=== PATIENT | female | born 1945 | race Caucasian/White ===

== ENCOUNTER → 2016-09-25 | Outpatient (REF) | payer MEDICARE | LOC: M LAB REF 17:30 | PROVIDERS: ATTEND Internal Medicine Endocrinology, Diabetes & Metabolism | DX: E04.2 Nontoxic multinodular goiter (principal); Z85.3 Personal history of malignant neoplasm of breast ==

== ENCOUNTER → 2016-10-24 | Outpatient (CLI) | payer MEDICARE ==
--- NOTE | 2016-10-26 09:35 | DEXA ---
AP SPINE L1 - L4 1.161 -0.3 1.4 LT FEMUR TOTAL 0.858 -1.2 0.3 RT FEMUR TOTAL 0.834 -1.4 0.2 TOTAL BODY TOTAL OTHER DUAL FEMUR FRAX* ASSESSMENT Risk factors: Mother hip fracture, adult fractures. 10 year probability of fracture Major osteoporotic fracture 30.1 % Hip fracture 10.7 % COMMENTS: Normal bone densitometry of the spine. There is low bone density of the hips. The density of the spine has decreased 3.9% since the initial exam on 2000. The spine density has increased 0.7% since the most recent exam on 10/03/2015. The density of the left hip has decreased 3.2% since the initial exam on 2000. The density of the left hip has decreased 1.7% since the most recent exam on . The density of the right hip has decreased 1.1% since the initial exam on 2000. The density of the right hip has decreased 0.4% since the most recent exam on . FOLLOW-UP: Recommendation for the next bone density exam: 2 years. NESS
== END ==
LOC: M WHC 13:06
PROVIDERS: ATTEND Internal Medicine Medical Oncology
DX: M85.80 Other specified disorders of bone density and structure, unspecified site (principal); Z79.811 Long term (current) use of aromatase inhibitors

== ENCOUNTER → 2017-01-25 | Outpatient (REF) | payer MEDICARE ==
[2017-01-25 14:28] LABS: FOLATE 21.8 NG/ML
== END ==
LOC: M LAB REF 12:32
PROVIDERS: ATTEND Internal Medicine Medical Oncology
DX: C50.919 Malignant neoplasm of unspecified site of unspecified female breast (principal)

== ENCOUNTER → 2017-09-24 | Outpatient (REF) | payer MEDICARE | LOC: M LAB REF 18:16 | DX: C44.712 Basal cell carcinoma of skin of right lower limb, including hip (principal); L57.0 Actinic keratosis | CPT/HCPCS: 88305 ==

== ENCOUNTER → 2017-10-29 | Outpatient (CLI) | payer MEDICARE ==
[~2017-10-29] MED LIST: GASTROGRAFIN SOLUTION 30ML (Q9963) As Ordered; ISOVUE-370 76% 100ML VIAL (Q9967) As Ordered
== END ==
LOC: M RAD 12:09
DX: C50.919 Malignant neoplasm of unspecified site of unspecified female breast (principal); K76.89 Other specified diseases of liver; R91.8 Other nonspecific abnormal finding of lung field; R10.9 Unspecified abdominal pain; M85.80 Other specified disorders of bone density and structure, unspecified site; Z78.0 Asymptomatic menopausal state
CPT/HCPCS: Q9963

== ENCOUNTER → 2017-10-29 | Outpatient (CLI) | payer MEDICARE | LOC: M WHC 11:21 | DX: C50.919 Malignant neoplasm of unspecified site of unspecified female breast (principal); M85.80 Other specified disorders of bone density and structure, unspecified site ==

== ENCOUNTER → 2018-12-08 | Outpatient (REF) | payer MEDICARE ==
[~2018-12-08] MED LIST changes: -GASTROGRAFIN SOLUTION 30ML (Q9963) As Ordered; -ISOVUE-370 76% 100ML VIAL (Q9967) As Ordered; +LETR2.5T2 PO
[2018-12-10 00:06] LABS: Lyme Disease IgG/IgM Antibodie <0.91 ISR (0.00-0.90); Lyme Disease IgM Ab Quantitati <0.80 index (0.00-0.79)
== END ==
LOC: M LAB REF 12:29
PROVIDERS: ATTEND Internal Medicine
DX: M25.50 Pain in unspecified joint (principal)

== ENCOUNTER → 2019-01-02 | Outpatient (REF) | payer MEDICARE ==
[~2019-01-02] MED LIST changes: +ASPI81TA85 PO; +CALTTAB6 PO; +MULTTAB13 PO; +VITA200028 PO
== END ==
LOC: M SFHCPLAZ 16:45
PROVIDERS: ATTEND Dermatology
DX: C44.629 Squamous cell carcinoma of skin of left upper limb, including shoulder (principal)
CPT/HCPCS: 11102; 17000; 17003; 88305; G0463

== ENCOUNTER → 2019-01-09 | Outpatient (REF) | payer MEDICARE | LOC: M LAB REF 19:31 | PROVIDERS: ATTEND Dermatology | DX: L90.5 Scar conditions and fibrosis of skin (principal) ==

== ENCOUNTER → 2021-12-27 | Outpatient (REF) | payer MEDICARE ==
[~2021-12-27] MED LIST changes: -ASPI81TA85 PO; +ASPI81TA86 PO
== END ==
LOC: M SFHCDERM 14:33
PROVIDERS: ATTEND Physician Assistant
DX: B99.9 Unspecified infectious disease (principal)

== ENCOUNTER → 2022-10-17 | Outpatient (REF) | payer MEDICARE | LOC: M LAB REF 16:14 | PROVIDERS: ATTEND Internal Medicine | DX: N39.0 Urinary tract infection, site not specified (principal) ==

== ENCOUNTER → 2022-10-19 | Outpatient (REF) | payer MEDICARE | LOC: M LAB REF 16:22 | PROVIDERS: ATTEND Internal Medicine | DX: N30.01 Acute cystitis with hematuria (principal); L29.8 Other pruritus; I87.322 Chronic venous hypertension (idiopathic) with inflammation of left lower extremity ==

== ENCOUNTER → 2024-12-02 | Outpatient (REF) | payer MEDICARE | LOC: M SFHCDERM 17:49 | PROVIDERS: ATTEND Physician Assistant | DX: C44.329 Squamous cell carcinoma of skin of other parts of face (principal); C44.619 Basal cell carcinoma of skin of left upper limb, including shoulder ==

== ENCOUNTER → 2024-12-29 | Outpatient (REF) | payer MEDICARE | LOC: M SFHCDERM 07:59 | PROVIDERS: ATTEND Physician Assistant | DX: C44.91 Basal cell carcinoma of skin, unspecified (principal) ==